=== PATIENT | male | born 1945 | race Caucasian/White ===

== ENCOUNTER 2018-04-23 07:30 | Inpatient (IN) ==
[2018-04-17 11:52] LABS: Basophils # (Auto) 0 K/mcL (0.0-0.3); Basophils % (Auto) 0.2 % (0.0-2.0); Eosinophils # (Auto) 0.2 K/mcL (0.0-0.7); Lymphocytes # (Auto) 2.5 K/mcL (1.5-4.8); Mean Cell Volume 92.9 fL (80.0-100.0); Mean Corpuscular HGB Conc 34.2 g/dL (31.0-36.0); Mean Corpuscular Hemoglobin 31.7 pg (26.0-34.0); Monocytes # (Auto) 1.2 K/mcL (0.1-0.9); Monocytes % (Auto) 10.8 % (1.0-12.0); Platelet Count 192 K/mcL (140-440); RBC 4.64 M/mcL (4.50-5.90)
[2018-04-17 12:29] LABS: Blood Urea Nitrogen 19 mg/dl (8-23)
[2018-04-17 12:45] LABS: Appearance,Urine HAZY; Bacteria,Urine 0 /hpf (0); Bilirubin,Urine NEG (NEG); Color,Urine AMBER; Glucose,Urine (UA) NEGATIVE (NEG); Leukocyte Esterase,Urine 25 /uL (NEG); Protein,Urine NEG (NEG); Specific Gravity,Urine 1.015 (1.000-1.035); Urine Blood NEG mg/dL (<0.03); Urine RBC 0 /hpf (0-1); Urine Squamous Epithelial Cell 0 /hpf (0-4); Urine WBC 1 /hpf (0-4); Urobilinogen,Urine NEG (NEG)
[~2018-04-23 07:30] MED LIST: ACETAMINOPHEN 500 MG TABLET PO SCH; CELECOXIB 200 MG CAPSULE PO SCH; GABAPENTIN 300 MG CAPSULE PO SCH; oxyCODONE 10 MG TAB.ER.12H PO SCH
--- NOTE | 2018-04-23 10:52 | Brief Operative Note ---
Date of procedure: 04/23/18 Pre-op diagnosis: right shoulder rca Post-op diagnosis: same Procedure: right reverse tsa Grafts/Implants: Yes Anesthesia: TOOTIEA Surgeon: Rene Conti Manufacturing Weaver: Ryne Ellington Estimated blood loss (cc): 50 Specimens Removed/Pathology: none sent Condition: stable Disposition: PACU
[2018-04-23] MEDS ORDERED: FLEETS ADULT ENEMA PR PRN (10:53)
[2018-04-23] MEDS ORDERED: MAGNESIUM HYDROXIDE 30 ML ORAL.SUSP PO PRN (10:53)
[2018-04-23] MEDS ORDERED: BISACODYL 10 MG SUPP.RECT PR PRN (10:53)
[2018-04-23] MEDS ORDERED: ACETAMINOPHEN 325 MG TABLET PO PRN (10:53)
[2018-04-23] MEDS ORDERED: BENZOCAINE/MENTHOL 1 LOZENGE PO PRN ×2 (10:53→12:58)
[2018-04-23] MEDS ORDERED: POLYETHYLENE GLYCOL 3350 17 GM PACKET PO PRN (10:53)
[2018-04-23] MEDS ORDERED: TRANEXAMIC ACID 1,000 MG/10 ML VIAL IV SCH (10:53)
[2018-04-23] MEDS ORDERED: ONDANSETRON 4 MG/2 ML VIAL IV PRN ×2 (10:53→12:58)
[2018-04-23] MEDS ORDERED: oxyCODONE/APAP 5/325MG TABLET PO PRN (10:54)
[2018-04-23] MEDS ORDERED: TRANEXAMIC ACID 1,000 MG/10 ML VIAL IV ONE (12:20)
[2018-04-23] MEDS ORDERED: KETAMINE 100 MG/ML ML IV ONE (12:20)
[2018-04-23] MEDS ORDERED: SUCCINYLCHOLINE 20 MG/ML ML IV ONE (12:20)
[2018-04-23] MEDS ORDERED: MIDAZOLAM 2 MG/2 ML VIAL IV ONE (12:20)
[2018-04-23] MEDS ORDERED: DEXAMETHASONE 10 MG/ML VIAL IV ONE (12:20)
[2018-04-23] MEDS ORDERED: GLYCOPYRROLATE 0.2 MG/ML VIAL IV ONE (12:20)
[2018-04-23] MEDS ORDERED: fentaNYL 250 MCG/5 ML VIAL IV ONE (12:20)
[2018-04-23] MEDS ORDERED: PROPOFOL 200 MG/20 ML VIAL IV ONE (12:20)
[2018-04-23] MEDS ORDERED: ONDANSETRON 4 MG/2 ML VIAL IV ONE (12:20)
[2018-04-23] MEDS ORDERED: ROPIVACAINE HCL/PF 30 ML VIAL IJ ONE (12:20)
[2018-04-23] MEDS ORDERED: LIDOCAINE HCL/PF 100 MG/5 ML SYRINGE IV ONE (12:20)
[2018-04-23] MEDS ORDERED: CLINDAMYCIN 900 MG in DEXTROSE 5% IN WATER 50 ML IV SCH (12:30)
[2018-04-23] MEDS ORDERED: GENTAMICIN SULFATE 800 MG/20 ML VIAL IR ONE (12:58)
[2018-04-23] MEDS ORDERED: METHOCARBAMOL 1,000 MG/10 ML VIAL IV PRN (12:58)
[2018-04-23] MEDS ORDERED: LACTATED RINGERS 250 ML IV PRN (12:58)
[2018-04-23] MEDS ORDERED: FLUMAZENIL 0.1 MG/ML ML IV PRN (12:58)
[2018-04-23] MEDS ORDERED: KETOROLAC 15 MG/ML VIAL IV PRN (12:58)
[2018-04-23] MEDS ORDERED: IPRATROPIUM/ALBUTEROL 3 ML AMPUL.NEB NEB PRN (12:58)
[2018-04-23] MEDS ORDERED: NALOXONE HCL 0.4 MG/ML VIAL IV PRN (12:58)
[2018-04-23] MEDS ORDERED: MEPERIDINE 25 MG/ML SYRINGE IV PRN (12:58)
[2018-04-23] MEDS ORDERED: LACTATED RINGERS 1,000 ML IV SCH (13:00)
--- NOTE | 2018-04-23 13:57 | Operative Note ---
DATE OF OPERATION: 04/23/2018 PREOPERATIVE DIAGNOSIS: Right shoulder rotator cuff arthropathy, biceps tendinopathy and arthritis. POSTOPERATIVE DIAGNOSIS: Right shoulder rotator cuff arthropathy, biceps tendinopathy and arthritis. PROCEDURE: Right reverse total shoulder and biceps tenodesis. SURGEON: Rene Conti MD ROUTER TENDER: Ryne Ellington PA-C ANESTHESIA: General LMA anesthesia. COMPLICATIONS: None. ESTIMATED BLOOD LOSS: About 50 mL DESCRIPTION OF PROCEDURE: The patient was brought to the operating room and put to sleep with general LMA anesthesia. Once asleep, the patient had the right shoulder sterilely prepped and draped in the beach chair position. Timeout was performed confirming the operative site. Preop antibiotics and tranexamic acid had been given. Once this was done, we then made a deltopectoral approach, retracted the cephalic vein and deltoid laterally. We released the subscap at this point and dislocated the humeral head. We made the neck cut at the anatomical neck region in 20 degrees of retroversion. Once this was done, the bony fragment was removed and osteophytes posteriorly were removed. We then released the biceps tendon and the bicipital groove. We then placed a protective plate on the humeral head. This was retracted posteriorly, a double Bend retractor superiorly and cobra retractors anterior and inferiorly. We performed a 360 degree bicep and labral removal. Once done, we then released the anterior capsule and posterior inferior capsule from the glenoid neck for about a centimeter. Once this was done, we then placed a screw centrally and this measured a depth of 36 mm. We reamed with an extra-large reamer for the 40 mm ball making the bone bleed up to the central portion of the screw hole. We then placed a 36 mm screw with a metaglene. This was locked into place with a 36, 28 and a 32 mm screw, all of which were locked with excellent purchase. We then placed a 40 mm head with 2 mm of offset. I then placed a broach in the humeral head and removed any osteophytes. This was broached up to the size 12. We trialed the size 12 and this seemed to fit very nicely with a neutral poly. We tapped into place the stem and a 40 mm poly with a standard thickness. This was reduced. Full range of motion achieved. We irrigated thoroughly. We did not repair the subscap. Biceps tenodesis #2 Ethibond x4 sutures to the pec major. No complications. We irrigated thoroughly and checked for major bleeders, closed the fascial layer with 2-0 Vicryl. Skin was closed with Stratafix and adhesive closure. A DonJoy sling was fitted and given to the patient at the end of the case. RBH:annie Job ID: [id number] Doc ID: [id number] Rene Conti MD
[2018-04-23] MEDS: fentaNYL 100 MCG/2 ML VIAL IV PRN ×2 (14:31→14:36)
--- NOTE | 2018-04-23 14:38 | XRay Report ---
CLINICAL INFORMATION: ITS.REASON: Post-OP Total Shoulder COMPARISON: None. FINDINGS: Total shoulder prostheses is anatomically aligned. No osseous abnormality. Soft tissue swelling seen as expected.] IMPRESSION: Interpreted and Authenticated by: Robert Ames 04/23/18
[2018-04-23] MEDS: HYDROmorphone 2 MG/ML VIAL IV SCH ×2 (14:47→15:40)
[2018-04-23] MEDS ORDERED: HYDROmorphone 2 MG/ML VIAL ONE (14:50)
[2018-04-23] MEDS: HYDROcodone/APAP 10/325MG TABLET PO PRN (15:19)
[2018-04-23] MEDS: KETOROLAC 15 MG/ML VIAL IV PRN (15:19)
[2018-04-23] MEDS: 0.45 % SODIUM CHLORIDE 1,000 ML IV SCH (15:23)
[2018-04-23] MEDS: 0.9 % SODIUM CHLORIDE 10 ML SYRINGE IV SCH (15:26)
[2018-04-23] MEDS: GABAPENTIN 300 MG CAPSULE PO SCH ×2 (15:35→20:52)
[2018-04-23] MEDS: HYDROmorphone 2 MG/ML VIAL IV PRN (16:29)
[2018-04-23] MEDS: DOCUSATE SODIUM 100 MG CAPSULE PO SCH (20:51)
[2018-04-23] MEDS: ASPIRIN 325 MG ENTERIC COATED TABLET PO SCH (20:52)
[2018-04-23] MEDS ORDERED: TAMSULOSIN 0.4 MG CAPSULE PO SCH (21:00)
[2018-04-23] MEDS ORDERED: TEMAZEPAM 15 MG CAPSULE PO PRN (21:00)
[2018-04-23] MEDS ORDERED: SENNOSIDES 1 TABLET PO SCH (21:00)
[2018-04-24] MEDS: 0.9 % SODIUM CHLORIDE 10 ML SYRINGE IV SCH ×2 (00:01→06:18)
[2018-04-24] MEDS: 0.45 % SODIUM CHLORIDE 1,000 ML IV SCH ×2 (01:17→06:37)
[2018-04-24] MEDS: HYDROmorphone 2 MG/ML VIAL IV PRN ×2 (01:30→11:21)
[2018-04-24] MEDS: KETOROLAC 15 MG/ML VIAL IV PRN (06:17)
--- NOTE | 2018-04-24 08:04 | Orthopedic Progress Note ---
Subjective Patient information: Note initiated : 04/24/18 at 8:03 am Service Date, if different from initiated Date: [] Patient: Kunal Delong 72 y/o M admitted on 04/23/18 for Right Reverse Total Shoulder Arthroplasty with. Chief Complaint: [Pt is stable this morning on post operative day 2 without any significant concerns or complaints. Patients vital signs have remained stable. Patients dressing is dry and is grossly instact from a neurovascular and motor standpoint. Patients 10 point ROS is otherwise negative. ] Objective Vital signs: Vital Signs Temp Pulse Resp BP Pulse Ox 04/24/18 06:43 98.1 F 20 116/77 95 04/24/18 04:00 97.7 F 60 14 112/57 94 04/24/18 00:00 97.7 F 63 14 124/65 95 04/23/18 19:00 97.0 F 56 L 14 107/68 93 04/23/18 17:14 108/54 94 04/23/18 16:45 107/66 91 04/23/18 16:24 91 04/23/18 16:15 115/67 94 04/23/18 15:59 127/80 95 04/23/18 15:44 129/75 94 04/23/18 15:29 128/79 95 04/23/18 15:14 127/79 94 04/23/18 15:03 97.5 F 65 13 125/79 94 04/23/18 14:50 67 16 132/80 94 04/23/18 14:40 62 12 108/67 92 04/23/18 14:30 64 16 121/77 95 04/23/18 14:20 62 11 L 121/73 97 04/23/18 14:10 61 13 118/77 97 04/23/18 14:05 61 11 L 116/66 97 04/23/18 14:00 63 12 106/63 96 04/23/18 13:55 97.3 F 67 12 93/55 98 04/23/18 10:44 97.1 F 18 151/92 96 Intake and Output 04/23/18 04/24/18 04/24/18 21:59 05:59 13:59 Intake Total 1840 / 1840 477 / 477 Output Total 225 / 225 1375 / 1375 600 / 600 Balance -225 / -225 465 / 465 -123 / -123 Intake: IV 990 / 990 477 / 477 Sodium Chloride 0.45% 1,000 ml 990 / 990 477 / 477 @ 100 mls/hr IV .Q10H ELAINE Rx#: [id number] Oral 850 / 850 Output: Void Amount 225 / 225 1375 / 1375 600 / 600 Other: Meal Dinner Percent of Meal Consumed 100% Feeding Ability Assist with Tray Set Up Urine Appearance Clear Urine Color Bright Yellow Pale Urine Odor Normal Normal # Voids 1 1 1 Weight 238 lb 8 oz Intake & Output: Intake & Output 04/23/18 04/24/18 04/24/18 21:59 05:59 13:59 Intake Total 1840 / 1840 477 / 477 Output Total 225 / 225 1375 / 1375 600 / 600 Balance -225 / -225 465 / 465 -123 / -123 Weight 238 lb 8 oz Intake: IV 990 / 990 477 / 477 Sodium Chloride 0.45% 1,000 ml 990 / 990 477 / 477 @ 100 mls/hr IV .Q10H ELAINE Rx#: [id number] Oral 850 / 850 Output: Void Amount 225 / 225 1375 / 1375 600 / 600 Other: Meal Dinner Percent of Meal Consumed 100% Feeding Ability Assist with Tray Set Up Urine Appearance Clear Urine Color Bright Yellow Pale Urine Odor Normal Normal # Voids 1 1 1 Incision: Yes healing Incision clean and dry: Yes Dressing: Yes clean Weight bearing status: full Neurological exam IM: Yes motor sensory intact, Yes neurovascular intact Extremities exam IM: Yes neurovascular intact - Labs CBC & BMP: 04/17/18 09:52 04/17/18 09:52 Labs: Orthopedic Labs 04/17/18 09:52 PT 13.1 INR 1.0 APTT 42 H 04/17/18 09:52 Hgb 14.7 Hct 43.2 Assessment and Plan (1) Hx of total shoulder replacement The patient has been educated regarding dressing care, Physical Therapy recommendations, home exercises, restrictions, and follow up appointments. The patient has had all necessary DME prescribed. The patient has remained relatively stable during their hospital course.Leave Dermabond patch intact until followup Status: Acute
--- NOTE | 2018-04-24 08:06 | Discharge Summary ---
Ortho Discharge - TSA - Patient Instructions Diet: Regular Diet Activity: activity as tolerated, weight bearing as tolerated Total Shoulder Protocol: Leave immobilizer in place except for bathing and ROM. Abduction pillow. Continue to wear sling until seen by physician. Codman Pendulum : These exercises use momentum produced by your body to move your shoulder joint. Bend your knees and shift your weight to your front leg, then back, allowing your arm to swing in the same directions. Using the same technique, alternately shift your weight between your right and left legs, allowing your arm to swing from side to side. These exercises are also performed in counterclockwise and clockwise circular motions. Typically these exercises are performed several times per day, for a set number repetitions or minutes, such as 20 times in a row or 5 minutes at a time. Dressing Care: May shower in 2 days - Problem Maintenance (1) Hx of total shoulder replacement Status: Acute - Follow Up Plan Follow Up Appointments: Ryne Ellington PA-C [Physician [facility]] - 05/08/18 1:10 pm Disposition: Home, Self-Care Prognosis: Good Rehab Potential: Good I certify that the patient requires SNF services: No Overall status at discharge: patient is progressing back to baseline - Orders For Discharge Prescriptions: Docusate Sodium [Colace] 100 mg PO BID #60 cap HYDROcodone/APAP 10/325MG [[place] 10-325Mg] 1 - 2 tab PO Q4HP PRN #75 tab PRN Reason: Pain Level 3-6
[2018-04-24] MEDS: HYDROcodone/APAP 10/325MG TABLET PO PRN ×2 (08:20)
[2018-04-24] MEDS: DOCUSATE SODIUM 100 MG CAPSULE PO SCH (08:22)
[2018-04-24] MEDS: GABAPENTIN 300 MG CAPSULE PO SCH (08:23)
[2018-04-24] MEDS: ASPIRIN 325 MG ENTERIC COATED TABLET PO SCH (08:23)
[2018-04-24] MEDS ORDERED: VIT A,C & E/LUTEIN/MINERALS TABLET PO SCH (09:00)
[2018-04-24] MEDS ORDERED: ASCORBIC ACID 500 MG TABLET PO SCH (09:00)
[2018-04-24] MEDS ORDERED: MAGNESIUM OXIDE 400 MG TABLET PO SCH (09:00)
[2018-04-24] MEDS ORDERED: FLUTICASONE PROPIONATE SPRAY.NAS NS SCH (09:00)
[2018-04-24] MEDS ORDERED: MULTIVIT,THER IRON,CA,FA & MIN 1 TABLET PO SCH (09:00)
[2018-04-24] MEDS ORDERED: VITAMIN B COMPLEX 1 CAPSULE PO SCH (09:00)
== END 2018-04-24 12:26 | disposition home or self-care (01) | DRG 483 ==
LOC: MEDSUR 10:22
PROVIDERS: ADMIT Orthopaedic Surgery; ATTEND Orthopaedic Surgery